=== PATIENT | male | born 1970 | race Caucasian/White ===

== ENCOUNTER 2020-10-21 11:10 | Emergency (ER) | payer OTHER, MEDICAID, SELFPAY ==
--- NOTE | 2020-10-21 11:20 | XR_ITS ---
EXAMINATION: RIGHT HAND. RIGHT FINGERS. CLINICAL INFORMATION: Trauma. COMPARISON: None TECHNIQUE: Right hand 2 views. Right fingers 2 views. FINDINGS: RIGHT FINGERS: There is a comminuted mildly displaced oblique fracture involving almost entire proximal phalanx first digit with PIP intra-articular extension. There is mild soft tissue swelling. No additional fracture or dislocation. RIGHT HAND: Besides proximal phalanx first digit fracture there are no additional areas of fracture seen. XR/XR hand RT 2V IMPRESSION: There is a comminuted fracture proximal phalanx first digit with PIP intra-articular extension. Mild soft tissue swelling. No additional fracture seen involving the right hand or the right fingers.
[2020-10-21 11:24] VITALS: BP 119/76; PULSE 93; RESP 16; TEMP 36.9; O2SAT 97; BMI 22.7
--- NOTE | 2020-10-21 11:27 | ED.EXTPRO ---
HPI - Extremity Problem General Chief complaint: Extremity Injury, Upper Stated complaint: lac- finger Time Seen by Provider: 10/21/20 11:20 Source: patient Mode of arrival: ambulatory Limitations: no limitations History of Present Illness HPI Narrative: Patient presents to ED for right thumb pain. Patient at work he moves around garbage and there was a large door and fell on his hand and since then has had right thumb pain.Patient denies any other trauma. Related Data Previous Rx's Medication Instructions Recorded cephalexin [Keflex] 500 mg PO QID #28 cap 10/21/20 naproxen 500 mg PO BID PRN #20 tab 10/21/20 Allergies Allergy/AdvReac Type Severity Reaction Status Date / Time morphine [MORPHINE] Allergy Intermediate RASH Unverified 08/07/20 16:15 fluoxetine [FLUOXETINE] AdvReac Mild NO ENERGY Unverified 08/07/20 16:15 Review of Systems Constitutional: Constitutional: Reports as per HPI and Reports no additional constitutional complaints Eyes: Eyes: Reports as per HPI and Reports no additional eye complaints ENT: Reports system reviewed and no additional complaints, except as documented and Reports as per HPI Cardiovascular: Cardiovascular: Reports as per HPI and Reports no additional cardiovascular complaints Respiratory: Respiratory: Reports as per HPI and Reports no additional respiratory complaints Gastrointestinal: Gastrointestinal: Reports as per HPI and Reports no additional gastrointestinal complaints Genitourinary: Genitourinary: Reports no additional male genitourinary complaints and Reports as per HPI Musculoskeletal: Musculoskeletal: Reports no additional musculoskeletal complaints and Reports as per HPI Comments: right thumb pain Neurologic: Reports system reviewed and no additional complaints, except as documented and Reports as per HPI Psychiatric: Psychiatric: Reports no additional psychiatric complaints and Reports as per HPI [facility] Past Medical History Medical History Back disorder Psychiatric care Social History Social History Advance Directives: No Advance Directives Information Provided: No Physical Exam Vital Signs: Vital Signs: Last Vital Signs Temp 98.4 F 10/21/20 11:24 Pulse 93 10/21/20 11:24 Resp 16 10/21/20 11:24 BP 119/76 10/21/20 11:24 Pulse Ox 97 10/21/20 11:24 Body Mass Index 22.7 Const: General: cooperative, healthy appearing, comfortable, no acute distress, well developed, alert and awake Orientation/consciousness: patient oriented x3 HENMT: Head: Yes normal to inspection and Yes No palpable skull fracture present Eyes: General: appearance normal, both eyes and all related structures Neck: Neck: Yes normal visual inspection, Yes full ROM, Yes no lymphadenopathy, Yes no meningeal signs, Yes trachea midline, Yes supple and No tender Chest: Chest palpation & inspection: normal inspection of the chest, normal palpation of entire chest wall and no localized rib tenderness Resp: Effort & Inspection: normal respiratory effort and able to speak in complete sentences Auscultation: clear to auscultation bilaterally Cardio: Jugular venous distension: no JVD Heart sounds: S1 normal heart sound present and S2 normal heart sound present GI: Inspection: Yes normal to inspection and Yes abdominal wall ecchymosis : General: No CVA tenderness and Yes no CVA tenderness Back/Spine/Pelvis: Back: no CVA tenderness, No CVA tenderness and No back tenderness Skin: General skin exam: no rashes or lesions noted and elasticity normal Neuro: General: patient oriented x3, gait normal, no meningeal signs and CN's II-XI intact bilaterally Cranial nerves: Yes CN's II-XII intact bilaterally Extrem: Other: right thumb positive for abrasion on the dorsal and palmar aspect of thumb. Right thumb with positive swelling. Negative for obvious deformities. patient able to flex and extend right thumb. Capillary refill of all fingers are intact. Radial pulses are intact. Course Course Course Narrative: patient will have Tdap and x-ray ordered. Patient does not want anything for pain. Has abrasions and does not need laceration repair. Reevaluation(s) Reevaluation #1: X-ray shows committed fracture of the thumb at the PIP. Patient will be placed in thumb spica splint. Patient also be discharged with antibiotics. Tdap order was canceled. Patient states he is up-to-date with his tetanus Time: 12:17 Reevaluation #2: thumb spica splint placed by tech. Patient denies tightness, numbness or pain. Capillary refills of thumb and rest of fingers are intact Time: 12:40 MDM - Extremity (Nontraumatic) MDM Narrative Medical decision making narrative: right thumb commuting fracture Discharge Plan Discharge Clinical Impression: Fracture of thumb Patient Disposition: Home, Self-Care Instructions: Thumb Fracture (ED) Additional Instructions: return to the ED immediately for increased swelling, redness, pus discharge, foul odor, fever, chills, severe pain, bluish discoloration of thumb, or any other concerning symptoms. Prescriptions: New cephalexin [Keflex] 500 mg capsule 500 mg PO QID Qty: 28 RF: 0 naproxen 500 mg tablet 500 mg PO BID PRN (Reason: pain) Qty: 20 RF: 0 Referrals: Sage Graham MD [Physician] - 2 days (Right thumb fracture) Sebastian Zee MD [Physician] - 2 days (Right thumb fracture) Inge Gerard MD [Physician] - 2 days (right thumb fracture) Stand Alone Forms: Work/School Release Interventions: ED Discharge Assessment Last Done: 10/21/20 13:25 Discharge Date/Time: 10/21/20 13:26 Print Language: [place] Citizen
--- NOTE | 2020-10-21 11:30 | XR_ITS ---
EXAMINATION: RIGHT HAND. RIGHT FINGERS. CLINICAL INFORMATION: Trauma. COMPARISON: None TECHNIQUE: Right hand 2 views. Right fingers 2 views. FINDINGS: RIGHT FINGERS: There is a comminuted mildly displaced oblique fracture involving almost entire proximal phalanx first digit with PIP intra-articular extension. There is mild soft tissue swelling. No additional fracture or dislocation. RIGHT HAND: Besides proximal phalanx first digit fracture there are no additional areas of fracture seen. XR/XR finger RT min 2V IMPRESSION: There is a comminuted fracture proximal phalanx first digit with PIP intra-articular extension. Mild soft tissue swelling. No additional fracture seen involving the right hand or the right fingers.
--- NOTE | 2020-10-21 13:23 | PC.NURSE ---
dunia jeffries applied thumb spica to rt hand
== END 2020-10-21 13:26 | disposition home or self-care (01) ==
PROVIDERS: Emergency Provider Emergency Medicine
DX: S62.511A Displaced fracture of proximal phalanx of right thumb, initial encounter for closed fracture (principal); W23.1XXA Caught, crushed, jammed, or pinched between stationary objects, initial encounter; Y93.9 Activity, unspecified; Y92.9 Unspecified place or not applicable; Y99.0 Civilian activity done for income or pay
CPT/HCPCS: 29130; 73120; 73140; 99283

== ENCOUNTER → 2020-10-23 10:29 | Outpatient (BNVA) | payer OTHER, SELFPAY | PROVIDERS: Visit Provider Physician Assistant Medical | DX: S62.502A Fracture of unspecified phalanx of left thumb, initial encounter for closed fracture (principal); W23.0XXA Caught, crushed, jammed, or pinched between moving objects, initial encounter | CPT/HCPCS: 99203 ==

== ENCOUNTER 2020-10-27 10:47 | Outpatient (REF) | payer OTHER, SELFPAY ==
--- NOTE | 2020-10-27 13:33 | XR_ITS ---
EXAMINATION: XR HAND, RIGHT CLINICAL INFORMATION: Follow-up fracture COMPARISON: Previous x-ray 10/21/2020 TECHNIQUE: PA, lateral, and oblique views of the right hand. FINDINGS: There is a comminuted displaced fracture of the proximal phalanx of the thumb. Fracture appears intra-articular with the IP joint. Alignment is unchanged from previous exam. No other fracture is seen. Joint spaces are otherwise normal. Soft tissues are normal. XR/XR hand RT min 3V IMPRESSION: No change in the comminuted displaced fracture of the proximal phalanx of the thumb intra-articular with the IP joint.
== END 2020-10-27 10:48 | disposition home or self-care (01) ==
LOC: HO.HOSX 10:47
PROVIDERS: Visit Provider Orthopaedic Surgery
DX: S62.511B Displaced fracture of proximal phalanx of right thumb, initial encounter for open fracture (principal)
CPT/HCPCS: 73130; 99202

== ENCOUNTER 2020-11-11 09:35 | Outpatient (REF) | payer OTHER, SELFPAY ==
--- NOTE | 2020-11-11 09:41 | XR_ITS ---
EXAMINATION: XR FINGER, RIGHT CLINICAL INFORMATION: Pain. Fracture. COMPARISON: Previous x-rays most recent 10/27/2020 TECHNIQUE: Three views of the right thumb. FINDINGS: There is a comminuted fracture of the proximal phalanx of the thumb intra-articular with the IP joint. This is minimally displaced. Fracture lines are still seen. No evidence of bony callus formation suggesting healing is seen. Alignment appears unchanged. No other fracture is seen. Soft tissues are normal. XR/XR finger RT min 2V IMPRESSION: No change in the comminuted minimally displaced fracture of the proximal phalanx of the thumb from previous exams.
== END 2020-11-11 09:36 | disposition home or self-care (01) ==
LOC: HO.HOSX 09:35
PROVIDERS: Visit Provider Orthopaedic Surgery
DX: S62.511B Displaced fracture of proximal phalanx of right thumb, initial encounter for open fracture (principal); M79.641 Pain in right hand
CPT/HCPCS: 26740; 73140; 99212

== ENCOUNTER 2020-11-25 10:07 | Outpatient (REF) | payer OTHER, SELFPAY ==
--- NOTE | 2020-11-25 10:27 | XR_ITS ---
EXAMINATION: XR HAND, RIGHT CLINICAL INFORMATION: Right hand pain. COMPARISON: 11/11/2020 TECHNIQUE: PA, lateral, and oblique views of the right hand. XR/XR hand RT min 3V FINDINGS AND IMPRESSION: Soft tissues of the thumb are swollen. Again noted is a comminuted fracture of the proximal phalanx of the thumb with intra-articular extension at the interphalangeal joint. Bone fragments are in stable position. Persistent fracture lucencies are observed. Currently, no significant healing. No overt bridging bone formation. Bones have normal alignment throughout the hand and wrist.
== END 2020-11-25 10:08 | disposition home or self-care (01) ==
LOC: HO.HOSX 10:07
PROVIDERS: Visit Provider Orthopaedic Surgery
DX: S62.511D Displaced fracture of proximal phalanx of right thumb, subsequent encounter for fracture with routine healing (principal)
CPT/HCPCS: 73130; 99212

== ENCOUNTER 2020-12-10 09:21 | Outpatient (REF) | payer MEDICAID, SELFPAY | END 2020-12-10 09:22 | disposition home or self-care (01) | LOC: HO.LAB 09:21 | PROVIDERS: Visit Provider Internal Medicine | DX: Z20.822 Contact with and (suspected) exposure to COVID-19 (principal) | CPT/HCPCS: 36415; C9803; U0003 ==